=== PATIENT | female | born 1995 | race Caucasian/White ===

== ENCOUNTER 2017-11-15 22:10 | Emergency (ER) | END 2017-11-15 23:48 | disposition left against medical advice (07) | LOC: ER 22:10 | DX: Z53.21 Procedure and treatment not carried out due to patient leaving prior to being seen by health care provider (principal); R53.1 Weakness ==

== ENCOUNTER 2020-10-08 21:47 | Emergency (ER) | payer SELFPAY ==
[2020-10-08] MEDS ORDERED: ONDANSETRON 4 MG TAB.RAPDIS PO ONE (22:10)
[2020-10-08] MEDS ORDERED: ACETAMINOPHEN 325 MG TABLET PO ONE (22:10)
--- NOTE | 2020-10-08 22:10 | ER Document Report ---
ED Medical Screen (RME) - General Chief Complaint: Abdominal Pain Stated Complaint: CHILLS/NAUSEA/LOWER BACK PAIN/ABDOMINAL PAIN Time Seen by Provider: 10/08/20 22:06 Mode of Arrival: Ambulatory Information source: Patient Notes: 24-year-old female presented to ED for complaint of chills lower abdominal and back pain. She states she also has had nausea headache tired all the time with a headache. She states her last menstrual cycle was September 21. She states she is not on control. She states she does not smoke drink or use any drugs. Her past medical history has been updated. She states she has had a tetanus since high school. I have greeted and performed a rapid initial assessment of this patient. A comprehensive ED assessment and evaluation of the patient, analysis of test results and completion of medical decision making process will be conducted by an additional ED providers. TRAVEL OUTSIDE OF THE [place] IN LAST 30 DAYS: No - Related Data Allergies/Adverse Reactions: No Known Allergies Allergy (Unverified 11/15/17 22:14) Past Medical History - Social History Cigarette use (# per day): No Frequency of alcohol use: None Drug Abuse: None Lives with: Friend Family history: Reviewed & Not Pertinent - Past Medical History Cardiac Medical History: Reports: None Pulmonary Medical History: Reports: None EENT Medical History: Reports: None Neurological Medical History: Reports: None Endocrine Medical History: Reports: None Renal/ Medical History: Reports: None Malignancy Medical History: Reports: None GI Medical History: Reports: None Musculoskeltal Medical History: Reports None Skin Medical History: Reports None Psychiatric Medical History: Reports: Hx Anxiety, Hx Attention Deficit Hyperactivity Disorder - add, Hx Bipolar Disorder, Hx Depression, Hx Obsessive Compulsive Disorder Traumatic Medical History: Reports: None Infectious Medical History: Reports: None Past Surgical History: Reports: Hx Cholecystectomy - Immunizations Immunizations up to date: Yes Hx Diphtheria, Pertussis, Tetanus Vaccination: Yes Physical Exam - Vital signs Vitals: Temp Pulse Resp BP Pulse Ox 99.2 F 106 H 16 128/78 H 99 10/08/20 22:02 10/08/20 22:02 10/08/20 22:02 10/08/20 22:02 10/08/20 22:02 Course - Vital Signs Vital signs: Temp Pulse Resp BP Pulse Ox 99.2 F 106 H 16 128/78 H 99 10/08/20 22:02 10/08/20 22:02 10/08/20 22:02 10/08/20 22:02 10/08/20 22:02
[2020-10-08 23:00] LABS: ABSOLUTE LYMPHOCYTES (AUTO) 1.7 10^3/uL (0.5-4.7); ABSOLUTE NEUT (AUTO) 12.6 10^3/uL (1.7-8.2); BASOPHILS % (AUTO) 0.1 % (0-2); EOSINOPHILS % (AUTO) 0.3 % (0-6); HEMATOCRIT 37.6 % (36.0-47.0); HEMOGLOBIN 13.2 g/dL (12.0-15.5); LYMPHOCYTES % (AUTO) 10.8 % (13-45); MEAN CORPUSCULAR HEMOGLOBIN 34.4 pg (27.0-33.4); MEAN CORPUSCULAR HGB CONC 35.1 g/dL (32.0-36.0); MEAN CORPUSCULAR VOLUME 98 fl (80-97); MONOCYTES % (AUTO) 6.8 % (3-13); PLATELET COUNT 258 10^3/uL (150-450); RED BLOOD COUNT 3.84 10^6/uL (3.72-5.28); RED CELL DISTRIBUTION WIDTH 12.6 % (11.5-14.0); TOTAL CELLS COUNTED % (AUTO) 100 %; WHITE BLOOD COUNT 15.4 10^3/uL (4.0-10.5)
[2020-10-08 23:03] LABS: APPEARANCE,URINE CLEAR; BILIRUBIN,URINE NEGATIVE (NEGATIVE); COLOR,URINE STRAW; GLUCOSE, URINE NEGATIVE (NEGATIVE); KETONES,URINE NEGATIVE (NEGATIVE); LEUKOCYTE ESTERASE,URINE NEGATIVE (NEGATIVE); NITRITE,URINE NEGATIVE (NEGATIVE); PROTEIN,URINE NEGATIVE (NEGATIVE); URINE SPECIFIC GRAVITY 1.006; UROBILINOGEN,URINE NEGATIVE mg/dL (<2.0)
[2020-10-08 23:30] LABS: ALBUMIN 3.9 g/dL (3.5-5.0); ALKALINE PHOSPHATASE 43 U/L (38-126); ANION GAP 6 (5-19); ASPARTATE AMINO TRANSFERASE 18 U/L (14-36); BILIRUBIN,TOTAL 0.6 mg/dL (0.2-1.3); BLOOD UREA NITROGEN 13 mg/dL (7-20); CALCIUM 9.3 mg/dL (8.4-10.2); CARBON DIOXIDE 28 mmol/L (22-30); CHLORIDE 102 mmol/L (98-107); GLUCOSE 104 mg/dL (75-110); POTASSIUM 3.6 mmol/L (3.6-5.0); TOTAL PROTEIN 6.3 g/dL (6.3-8.2)
--- NOTE | 2020-10-09 00:45 | ER Document Report ---
ED General - General Chief Complaint: Abdominal Pain Stated Complaint: CHILLS/NAUSEA/LOWER BACK PAIN/ABDOMINAL PAIN Time Seen by Provider: 10/08/20 22:06 Primary Care Provider: OWEN ROMANO MD [ACTIVE STAFF] - 10/10/20 (for close outpatient INDEPENDENT SALES REPRESENTATIVE care) Mode of Arrival: Ambulatory TRAVEL OUTSIDE OF THE [place] IN LAST 30 DAYS: No - HPI Notes: 24-year-old female to the emergency department with complaints of nominal pain with associated nausea that began several days ago. Denies any fevers or chills. Does admit to headache as well as chills. Denies any vaginal bleeding or vaginal discharge. States she is has a little discomfort when she urinates. She does not think that she is . She has not taken anything for her symptoms. She denies being exposed to anybody with COVID-19. She denies any loss of smell or taste. She denies any sore throat, cough. - Related Data Allergies/Adverse Reactions: No Known Allergies Allergy (Unverified 11/15/17 22:14) Past Medical History - General Information source: Patient - Social History Smoking Status: Never Smoker Cigarette use (# per day): No Frequency of alcohol use: None Drug Abuse: None Lives with: Friend Family History: Reviewed & Not Pertinent - Past Medical History Cardiac Medical History: Reports: None Pulmonary Medical History: Reports: None EENT Medical History: Reports: None Neurological Medical History: Reports: None Endocrine Medical History: Reports: None Renal/ Medical History: Reports: None Malignancy Medical History: Reports: None GI Medical History: Reports: None Musculoskeletal Medical History: Reports None Skin Medical History: Reports None Psychiatric Medical History: Reports: Hx Anxiety, Hx Attention Deficit Hyperactivity Disorder - add, Hx Bipolar Disorder, Hx Depression, Hx Obsessive Compulsive Disorder Traumatic Medical History: Reports: None Infectious Medical History: Reports: None Past Surgical History: Reports: Hx Cholecystectomy - Immunizations Immunizations up to date: Yes Hx Diphtheria, Pertussis, Tetanus Vaccination: Yes Review of Systems - Review of Systems Constitutional: Chills. denies: Fever EENT: No symptoms reported Cardiovascular: denies: Chest pain, Palpitations, Heart racing, Orthopnea, Dyspnea, Syncope, Dizziness, Lightheaded Respiratory: denies: Cough, Short of breath Gastrointestinal: Abdominal pain, Nausea. denies: Diarrhea, Vomiting Genitourinary: Dysuria. denies: Burning, Discharge, Frequency, Flank pain, Hematuria, Incontinence, Pain Musculoskeletal: No symptoms reported Skin: No symptoms reported Hematologic/Lymphatic: No symptoms reported Neurological/Psychological: No symptoms reported -: Yes All other systems reviewed and negative Physical Exam - Vital signs Vitals: Temp Pulse Resp BP Pulse Ox 99.2 F 106 H 16 128/78 H 99 10/08/20 22:02 10/08/20 22:02 10/08/20 22:02 10/08/20 22:02 10/08/20 22:02 Interpretation: Tachycardic - Notes Notes: PHYSICAL EXAMINATION: GENERAL: Well-appearing, well-nourished and in no acute distress. HEAD: Atraumatic, normocephalic. EYES: Pupils equal round and reactive to light, extraocular movements intact, sclera anicteric, conjunctiva are normal. ENT: nares patent, oropharynx clear without exudates. Moist mucous membranes. NECK: Normal range of motion, supple without lymphadenopathy LUNGS: Breath sounds clear to auscultation bilaterally and equal. No wheezes rales or rhonchi. HEART: Regular rate and rhythm without murmurs ABDOMEN: Soft, normoactive bowel sounds. There is tenderness to palpation to the left lower quadrant, suprapubic abdomen, right lower quadrant. No guarding, no rebound. No masses appreciated. No CVA tenderness EXTREMITIES: Normal range of motion, no pitting or edema. No cyanosis. NEUROLOGICAL: No focal neurological deficits. Moves all extremities spontaneously and on command. PSYCH: Normal mood, normal affect. SKIN: Warm, Dry, normal turgor, no rashes or lesions noted. Course - Re-evaluation Re-evalutation: 10/09/20 Patient with leukocytosis and lower abdominal pain. Will send for CT scan. She states that the Tylenol given to her in triage was not effective. We will dose her with further pain control. 10/09/20 03:[address] reading for concern for possible hydrosalpinx but cannot rule out Tubo- ovarian abscess. Will send for US. Updated patient about the plan and asked about STD testing. Offered pelvic exam, but she would like to self swab. 10/09/20 06:23 Noted ultrasound reading. Discussed with Dr. Morgan, ER attending. Plan to discuss with INDEPENDENT SALES REPRESENTATIVE on-call. Spoke with Dr. Romano, INDEPENDENT SALES REPRESENTATIVE on-call. We discussed patient's elevated white blood count, vital signs, ultrasound and CT reading. Given the patient has been doing well here in the emergency department without any further vomiting and pain has been pretty well controlled Dr. Romano thinks that we can likely treat this outpatient. She would like for the patient to have 100 mg of doxycy robertson here IV as well as a gram of Rocephin. For outpatient therapy she would like the patient to have Keflex, Flagyl, doxycycline. She would like for the patient to come to the office on Saturday. She states the patient should return immediately if she has intractable vomiting, intractable pain, fevers. She thinks this is likely PID. I discussed this with the patient and she agrees with the plan. She has been resting quietly in the room. I have encouraged her to return immediately should she have worsening pain, intractable vomiting, fever. She agrees with the plan. I also placed her on pelvic rest. No douching, sex, tampons. She does report to me that she had a negative STD screen just before . We have gone ahead and swabbed her for gonorrhea and chlamydia as well as wet mount. - Vital Signs Vital signs: Temp Pulse Resp BP Pulse Ox 97.8 F 66 14 93/59 L 99 10/09/20 03:14 10/09/20 03:14 10/09/20 03:14 10/09/20 03:14 10/09/20 03:14 - Laboratory Result Diagrams: 10/08/20 22:25 10/08/20 22:25 Laboratory results interpreted by me: 10/08/20 10/08/20 22:25 22:25 WBC 15.4 H MCV 98 H MCH 34.4 H Lymph % (Auto) 10.8 L Absolute Neuts (auto) 12.6 H Seg Neutrophils % 82.0 H Sodium 136.3 L - Diagnostic Test Radiology reviewed: Image reviewed, Reports reviewed Discharge - Discharge Clinical Impression: Pelvic inflammatory disease (PID), Pelvic pain Condition: Stable Disposition: HOME, SELF-CARE Instructions: Pelvic Inflammatory Disease ([facility]) Additional Instructions: Please take medicines as prescribed. You need to complete all antibiotics. Please follow-up with Dr. Romano at her office on Saturday. Please return immediately if you have worsening pain, intractable vomiting, fevers. Pelvic rest. No sex, douching or tampons. Prescriptions: Fluconazole [Diflucan] 150 mg PO ONCE PRN #1 tablet PRN Reason: Metronidazole [Flagyl 500 mg Tablet] 500 mg PO TID #30 tablet Cephalexin Monohydrate [Keflex 500 mg Capsule] 500 mg PO Q6H 10 Days #40 capsule Hydrocodone/Acetaminophen [[place] 5-325 mg Tablet] 1 tab PO Q4H #12 tablet Doxycycline Hyclate [Vibramycin] 100 mg PO BID #20 capsule Ondansetron [Zofran Odt 4 mg Tablet] 1 - 2 tab PO Q4H PRN #15 tab.rapdis PRN Reason: For Nausea/Vomiting Forms: Special Work Note Referrals: OWEN ROMANO MD [ACTIVE STAFF] - 10/10/20 (for close outpatient INDEPENDENT SALES REPRESENTATIVE care)
[2020-10-09] MEDS ORDERED: ONDANSETRON HCL INJ/PF 4 MG/2 ML SDV IV ONE (01:09)
[2020-10-09] MEDS ORDERED: KETOROLAC TROMETHAMINE INJ/PF 30 MG/1 ML SDV IV ONE (01:09)
[2020-10-09] MEDS ORDERED: NORMAL SALINE 1000 ML 1,000 ML IV ONE (01:10)
--- NOTE | 2020-10-09 03:19 | RADIOLOGY REPORT (SQ) ---
CT abdomen and pelvis with contrast on 10/09/2020 at 2:10 AM CLINICAL INDICATION: Lower abdominal pain, leukocytosis TECHNIQUE: Multiple axial images are obtained throughout the abdomen and pelvis following the administration of IV contrast, 85 mL of Omnipaque 350contrast was administered intravenously without complication. This exam was performed according to our departmental dose-optimization program, which includes automated exposure control, adjustment of the mA and/or kV according to patient size and/or use of iterative reconstruction technique. Total DLP is 972.38 mGy*cm. COMPARISON: None FINDINGS: Abdomen: The lung bases are clear. The patient is status post cholecystectomy. The solid abdominal organs are unremarkable. There is no abdominal adenopathy. There is no free fluid or free air within the abdomen. The abdominal portion of the GI tract is unremarkable. Pelvis: There is a fluid-filled dilated tubular structure in the left adnexa most consistent with hydrosalpinx or pyosalpinx with enlargement of the left adnexa raising a question of a left-sided tubo-ovarian abscess. Would recommend follow-up pelvic ultrasound to better evaluate the left adnexa. Small amount of free fluid is noted in the pelvis. Pelvic organs otherwise appear unremarkable by CT. There is no pelvic adenopathy. Pelvic portion of the GI tract including the appendix is unremarkable. No bony abnormality is noted. IMPRESSION: 1. Dilated tubular fluid-filled structure in the left adnexa consistent with hydrosalpinx or pyosalpinx, concern would be for left-sided tubo-ovarian abscess and would recommend correlation with pelvic ultrasound. 2. Otherwise essentially unremarkable.
--- NOTE | 2020-10-09 05:33 | RADIOLOGY REPORT (SQ) ---
Ultrasound of the pelvis: 10/09/2020 4:30 AM FINANCIAL ANALYST INTERN HISTORY: 24-year-old patient with pelvic pain, concern for TOA. TECHNIQUE: Multiple grayscale and color Doppler images of the pelvis were obtained transvaginally. COMPARISON: CT of abdomen and pelvis from 10/09/2020 FINDINGS: The uterus measures 6.6 x 3.3 x 4.0 cm. The endometrium measures 3-4 mm in thickness. No myometrial mass is seen. The right ovary measures 1.4 x 2.5 x 2.1 cm. There is a probable physiologic cyst at the right ovary measuring up to 1.3 cm. The left adnexa measures 6.0 x 3.4 x 2.4 cm. There is an elongated tubular structure at the left adnexa which has some mildly increased peripheral vascularity. Normal arterial waveforms were obtained from both ovaries. Trace free intraperitoneal fluid is seen within the posterior cul-de-sac. IMPRESSION: There is an elongated tubular structure at the left adnexa with mildly increased vascularity. This may represent a tubo-ovarian abscess or less likely a hydrosalpinx.
[2020-10-09] MEDS ORDERED: CEFTRIAXONE 1 GM/D5W RTU 1 GM/50 ML RTUPB IV ONE (05:58)
[2020-10-09] MEDS ORDERED: DOXYCYCLINE HYCLATE INJ 100 MG VIAL IV ONE (05:59)
[2020-10-09 07:52] VITALS: BP 90/50
== END 2020-10-09 07:52 | disposition home or self-care (01) ==
LOC: ER 21:47
DX: N73.9 Female pelvic inflammatory disease, unspecified (principal); R51.9 Headache, unspecified; R11.0 Nausea; R10.30 Lower abdominal pain, unspecified; Z90.49 Acquired absence of other specified parts of digestive tract
CPT/HCPCS: 99285; 96361; 96375; 96365; 96368; 36415; 87040; 83690; 84703; 85025; 87077; 80053; 81001; 87150 ×26; 76830; 93976; 74177; J3490; S0119; J1885; J2405; J7030; J0696; 87186